=== PATIENT | female | born 1935 | race Caucasian/White ===

== ENCOUNTER → 2016-09-08 | Outpatient (CLI) | payer OTHER ==
[~2016-09-08] MED LIST: AMT10 PO; ASPEC81 PO; CALCTAB5 PO; CARI350T28 PO; DESONIDE OTB; GARLTAB3 PO; OMEG10007 PO; OXYC-57 PO; PRLSR20 PO; SIMV20TA2 PO; VITA400C15 PO
[2016-09-08 13:26] LABS: BASO % 1.1 %; BASO ABS # 0.06 K/uL (0-0.2); COMPLETE YES; EOS % 4.4 %; HEMATOCRIT 41.6 % (37-47); IG% 0.2 %; LYMPH % 35.6 %; LYMPH ABS # 1.93 K/uL (1.2-3.4); MEAN CELL VOLUME 91.4 fL (80-100); MEAN CORPUSCULAR HEMOGLOBIN 29.5 pg (25-34); MEAN CORPUSCULAR HGB CONC 32.2 g/dl (32-36); MEAN PLATELET VOLUME 10.6 fL (7.4-10.4); MONO % 10.1 %; NEUT % 48.6 %; PLATELET COUNT 254 K/uL (130-400); RED BLOOD COUNT 4.55 M/uL (4.2-5.4); WHITE BLOOD COUNT 5.42 K/uL (4.8-10.8)
[2016-09-08 13:48] LABS: ALT/SGPT 22 U/L (12-78); BLOOD UREA NITROGEN 15 mg/dl (7-18); BUN/CREATININE RATIO 18.6 (10-20); CARBON DIOXIDE 27 mmol/L (21-32); CHLORIDE 109 mmol/L (98-107); CHOLESTEROL 177 mg/dl (0-200); CREATININE 0.81 mg/dl (0.60-1.20); GLUCOSE 94 mg/dl (70-99); MAGNESIUM 2.1 mg/dl (1.8-2.4); POTASSIUM 4.1 mmol/L (3.5-5.1); SODIUM 144 mmol/L (136-145); TRIGLYCERIDES 86 mg/dl (0-150); VERY LOW DENSITY LIPOPROT CALC 17 mg/dl
[2016-09-08 13:50] LABS: CALCIUM 9.3 mg/dl (8.5-10.1)
[2016-09-08 13:58] LABS: AST/SGOT 15 U/L (15-37); CHOLESTEROL/HDL RATIO 3.3; HDL CHOLESTEROL 54 mg/dl; LDL CHOLESTEROL CALCULATED 106 mg/dl
== END | disposition home or self-care (01) ==
LOC: C.LABMFLN 10:42
PROVIDERS: ATTEND Family Medicine
DX: E78.00 Pure hypercholesterolemia, unspecified (principal); E55.9 Vitamin D deficiency, unspecified; R00.2 Palpitations

== ENCOUNTER → 2017-04-17 | Outpatient (CLI) | payer OTHER ==
[2017-04-17 15:39] LABS: BLOOD UREA NITROGEN 19 mg/dl (7-18); CALCIUM 9.4 mg/dl (8.5-10.1); CARBON DIOXIDE 27 mmol/L (21-32); CHOLESTEROL 190 mg/dl (0-200); CREATININE 0.84 mg/dl (0.60-1.20); GLUCOSE 99 mg/dl (70-99); POTASSIUM 3.9 mmol/L (3.5-5.1); SODIUM 140 mmol/L (136-145)
[2017-04-17 15:51] LABS: ALT/SGPT 20 U/L (12-78); AST/SGOT 14 U/L (15-37); LDL CHOLESTEROL CALCULATED 106 mg/dl
== END | disposition home or self-care (01) ==
LOC: C.LABMFLN 09:48
PROVIDERS: ATTEND Family Medicine
DX: E78.00 Pure hypercholesterolemia, unspecified (principal); E55.9 Vitamin D deficiency, unspecified

== ENCOUNTER → 2017-04-24 | Outpatient (CLI) | payer OTHER | END | disposition home or self-care (01) | LOC: C.LABMFLN 15:56 | PROVIDERS: ATTEND Family Medicine | DX: L66.9 Cicatricial alopecia, unspecified (principal) ==

== ENCOUNTER → 2017-11-28 | Outpatient (CLI) | payer OTHER ==
[2017-11-28 18:27] LABS: ALBUMIN 3.7 gm/dl (3.4-5.0); ALKALINE PHOSPHATASE 64 U/L (45-117); ALT/SGPT 21 U/L (12-78); AST/SGOT 16 U/L (15-37); BLOOD UREA NITROGEN 18 mg/dl (7-18); CALCIUM 9.1 mg/dl (8.5-10.1); CARBON DIOXIDE 25 mmol/L (21-32); CHOLESTEROL 147 mg/dl (0-200); CREATININE 0.76 mg/dl (0.60-1.20); GLUCOSE 106 mg/dl (70-99); LDL CHOLESTEROL CALCULATED 63 mg/dl; POTASSIUM 4.1 mmol/L (3.5-5.1); SODIUM 140 mmol/L (136-145); TOTAL PROTEIN 7.4 gm/dl (6.4-8.2)
== END | disposition home or self-care (01) ==
LOC: C.LABMFLN 11:09
PROVIDERS: ATTEND Family Medicine
DX: M81.0 Age-related osteoporosis without current pathological fracture (principal); E78.00 Pure hypercholesterolemia, unspecified; E55.9 Vitamin D deficiency, unspecified; M79.89 Other specified soft tissue disorders